=== PATIENT | female | born 1990 | race Caucasian/White ===

== ENCOUNTER 2023-01-21 11:09 | Day surgery (SDC) | payer BC, OTHER ==
[2023-01-16 14:39] VITALS: BMI 37.8
[2023-01-21 11:31] VITALS: RESP 16; TEMP 98.7
[2023-01-21] MEDS: LACTATED RINGERS 1,000 ML IV SCH ×2 (11:32→11:40)
[2023-01-21] MEDS ORDERED: PROPOFOL 10 MG/ML 20 ML VIAL IV ONE (12:24)
[2023-01-21] MEDS ORDERED: MIDAZOLAM 2 MG/2 ML VIAL ONE (12:24)
[2023-01-21] MEDS ORDERED: fentaNYL (PF) 50 MCG/ML 2 ML AMP ONE (12:24)
[2023-01-21 13:19] VITALS: BP 100/69; PULSE 75
[2023-01-21 13:50] LABS: Basophils % (A) 0 %; Eosinophils # (A) 0.4 k/uL (0-0.7); Eosinophils % (A) 5 %; HCT 38.7 % (34.0-46.0); HGB 13.7 gm/dL (11.4-16.0); Lymphocytes # (A) 3.7 k/uL (1.0-4.8); Lymphocytes % (A) 39 %; MCH 30.2 pg (25.0-35.0); MCHC 35.5 g/dL (31.0-37.0); MCV 85.1 fL (80.0-100.0); Mean Platelet Volume 7.8; Monocytes # (A) 0.6 k/uL (0-1.0); Monocytes % (A) 6 %; Neutrophils # (A) 4.6 k/uL (1.3-7.7); Neutrophils % (A) 48 %; Platelet Count 331 k/uL (150-450); RBC 4.54 m/uL (3.80-5.40); RDW 13.9 % (11.5-15.5); Reticulocyte % 2.3 % (0.5-2.0); WBC 9.6 k/uL (3.8-10.6)
--- NOTE | 2023-01-21 19:54 | OP ---
OPERATIVE REPORT DATE OF SERVICE : 01/21/2023 PROCEDURE: Bone marrow aspirate and biopsy. INDICATION: Persistent leukocytosis. DESCRIPTION OF PROCEDURE: After obtaining consent from the patient, the procedure was performed in the endoscopy suite under general anesthesia performed by anesthesia team. The patient was put in the left lateral decubital position. The right posterior superior iliac crest was localized. Skin was cleansed with ChloraPrep, all sterile procedures were followed. 2 mL of lidocaine was used for local anesthetic. Monoject needle was inserted, about 15 mL of aspirate and 2 cm core biopsy was obtained without any difficulties. Pressure applied afterwards. There was negligible blood loss. The patient tolerated the procedure very well without any immediate complications. MMODL / IJN: [id number] /
== END 2023-01-21 13:43 | disposition home or self-care (01) ==
LOC: OR 11:09
PROVIDERS: ATTEND Internal Medicine Hematology & Oncology
DX: D72.829 Elevated white blood cell count, unspecified (principal); F17.290 Nicotine dependence, other tobacco product, uncomplicated; F12.90 Cannabis use, unspecified, uncomplicated; K21.9 Gastro-esophageal reflux disease without esophagitis; Z79.1 Long term (current) use of non-steroidal anti-inflammatories (NSAID); F10.20 Alcohol dependence, uncomplicated; Z98.890 Other specified postprocedural states
CPT/HCPCS: 38222; 81025; 85025; 85045; J2250; J3010; J2704